=== PATIENT | female | born 1990 | race Caucasian/White ===

== ENCOUNTER 2021-05-10 09:23 | Emergency (ER) | payer OTHER ==
[2021-05-10 09:28] VITALS: BP 110/74; PULSE 83; BMI 23.1
[2021-05-10 09:29] VITALS: TEMP 98.2
[2021-05-10 10:50] LABS: PH,URINE 5.5 (5.0-8.0); URINE APPEARANCE CLEAR; URINE BILIRUBIN NEGATIVE (NEGATIVE); URINE COLOR YELLOW; URINE GLUCOSE (UA) NEGATIVE (NEGATIVE); URINE KETONE NEGATIVE (NEGATIVE); URINE LEUK ESTERASE NEGATIVE (NEGATIVE); URINE NITRITE NEGATIVE (NEGATIVE); URINE PROTEIN NEGATIVE (NEGATIVE); URINE UROBILINOGEN 0.2 mg/dL (0.2-1.0)
[2021-05-10 10:55] LABS: BASO % 0.6 % (0-2.0); EOS % 2.3 % (0-4.5); HEMATOCRIT 39.5 % (32.4-45.2); HEMOGLOBIN 13.6 GM/dL (10.7-15.3); LYMPH % 29.2 % (8-40); MCH 31.7 pg (25.7-33.7); MCHC 34.3 g/dl (32.0-36.0); MEAN CELL VOLUME 92.3 fl (80-96); MEAN PLT VOLUME 8.7 fl (7.5-11.1); MONO % 6.5 % (3.8-10.2); NEUT % 61.4 % (42.8-82.8); PLATELET COUNT 326 10^3/uL (134-434); RBC 4.28 M/mm3 (3.60-5.2); RDW 13.3 % (11.6-15.6)
[2021-05-10 11:05] LABS: CALCIUM 8.9 mg/dL (8.5-10.1)
[2021-05-10 11:06] LABS: BLOOD UREA NITROGEN 10.9 mg/dL (7-18)
[2021-05-10 11:09] LABS: CREATININE 0.7 mg/dL (0.55-1.3)
[2021-05-10 11:11] LABS: BILIRUBIN,TOTAL 0.4 mg/dL (0.2-1); TOT PROT 7.8 g/dl (6.4-8.2)
== END 2021-05-10 12:16 | disposition home or self-care (01) ==
LOC: JER 09:23
DX: R10.2 Pelvic and perineal pain (principal)
CPT/HCPCS: 36415; 80053; 81003; 84703; 85025; 87086; 99283-25

== ENCOUNTER 2021-10-21 09:45 | Emergency (ER) | payer OTHER ==
[2021-10-21 10:08] VITALS: BP 111/73; PULSE 89; TEMP 98.2; BMI 23.1
== END 2021-10-21 11:25 | disposition home or self-care (01) ==
LOC: JERFT 09:45
DX: R51.9 Headache, unspecified (principal); G89.29 Other chronic pain
CPT/HCPCS: 99281-25

== ENCOUNTER 2022-06-02 10:45 | Emergency (ER) | payer OTHER ==
[2022-06-02 10:59] VITALS: BP 117/78; PULSE 103; RESP 18; TEMP 98.3; BMI 24.2
[2022-06-02 11:58] LABS: BASO % 0.4 % (0-2.0); EOS % 1.3 % (0-4.5); HEMATOCRIT 39.7 % (32.4-45.2); HEMOGLOBIN 13.4 GM/dL (10.7-15.3); LYMPH % 23.2 % (8-40); MCHC 33.7 g/dl (32.0-36.0); MEAN PLT VOLUME 8.2 fl (7.5-11.1); MONO % 7.5 % (3.8-10.2); NEUT % 67.6 % (42.8-82.8); PLATELET COUNT 293 10^3/uL (134-434); RBC 4.46 M/mm3 (3.60-5.2); RDW 13.8 % (11.6-15.6); WHITE BLOOD COUNT 9.7 K/mm3 (4.0-10.0)
[2022-06-02 12:13] LABS: HCG,QUALITATIVE URINE Positive
[2022-06-02 12:22] LABS: EPI CELLS 11 /uL (0-25.1); HYALINE CASTS 1 /uL (0-3.1); PH,URINE 5.5 (5.0-8.0); URINE APPEARANCE CLEAR; URINE BACTERIA 74 /uL (0-1359); URINE BILIRUBIN NEGATIVE (NEGATIVE); URINE COLOR YELLOW; URINE GLUCOSE (UA) NEGATIVE (NEGATIVE); URINE KETONE NEGATIVE (NEGATIVE); URINE LEUK ESTERASE NEGATIVE (NEGATIVE); URINE NITRITE NEGATIVE (NEGATIVE); URINE PROTEIN NEGATIVE (NEGATIVE); URINE RBC 15 /uL (0-23.9); URINE UROBILINOGEN 0.2 mg/dL (0.2-1.0); URINE WBC 12 /uL (0-25.8)
[2022-06-02 12:28] LABS: CALCIUM 9.7 mg/dL (8.5-10.1)
[2022-06-02 12:30] LABS: BLOOD UREA NITROGEN 8.5 mg/dL (7-18)
[2022-06-02 12:32] LABS: CREATININE 0.5 mg/dL (0.55-1.3)
[2022-06-02 12:34] LABS: BILIRUBIN,TOTAL 0.4 mg/dL (0.2-1); TOT PROT 7.7 g/dl (6.4-8.2)
[2022-06-02 15:03] LABS: YEAST NONE SEEN (NEGATIVE)
== END 2022-06-02 14:50 | disposition home or self-care (01) ==
LOC: JERFT 10:45
DX: O20.0 Threatened abortion (principal)
CPT/HCPCS: 36415; 76817-TC; 80053; 81003; 84702; 84703; 85025; 86850; 86900; 86901; 87086; 99284-25

== ENCOUNTER 2023-01-26 06:06 | Inpatient (IN) | payer OTHER ==
[2023-01-26] MEDS ORDERED: ELECTROLYTE-148 SOLN 500 ML IV ONE ×2 (07:00→08:08)
[2023-01-26 07:29] VITALS: BMI 27.1
[2023-01-26] MEDS: ELECTROLYTE-148 SOLN 1,000 ML IV SCH (07:30)
[2023-01-26] MEDS ORDERED: CITRIC ACID/SODIUM CITRATE 30 ML UNIT-DOSE CUP PO ONE (07:30)
[2023-01-26] MEDS ORDERED: morphine SULFATE/PF 1 MG/2 ML (2cc Syringe - QUVA) ONE (08:10)
[2023-01-26] MEDS ORDERED: ceFAZolin SODIUM 1 GM VIAL ONE (08:10)
[2023-01-26] MEDS ORDERED: ONDANSETRON 4 MG/2 ML VIAL ONE (08:10)
[2023-01-26] MEDS ORDERED: FENTANYL CITRATE/PF 50 MCG/ML VIAL ONE (08:10)
[2023-01-26] MEDS ORDERED: PHENYLEPHRINE HCL 10 MG/1 ML SINGLE DOSE VIAL ONE ×2 (08:12)
[2023-01-26] MEDS ORDERED: ELECTROLYTE-148 SOLN 1,000 ML IV SCH (08:15)
[2023-01-26] MEDS ORDERED: ACETAMINOPHEN 325 MG TABLET (FP) PO PRN (09:14)
[2023-01-26] MEDS ORDERED: METHYLERGONOVINE MALEATE 0.2 MG/1 ML AMP IM PRN (09:14)
[2023-01-26] MEDS ORDERED: SENNOSIDES/DOCUSATE COMBO (SENNA PLUS) TABLET (UD) PO PRN (09:14)
[2023-01-26] MEDS ORDERED: IBUPROFEN 800 MG/8 ML IJ IVPB ONE (09:51)
[2023-01-26] MEDS: IBUPROFEN 800 MG/8 ML IJ IVPB PRN (10:00)
[2023-01-26] MEDS: OXYTOCIN 20 UNITS in 0.9% NS 20 UNIT/1,000 ML INFUS.BAG IV SCH (10:05)
[2023-01-26] MEDS ORDERED: OXYTOCIN 20 UNITS in 0.9% NS 20 UNIT/1,000 ML INFUS.BAG IV ONE (10:32)
[2023-01-26] MEDS ORDERED: oxyCODONE HCL 5 MG TABLET PO PRN (21:14)
[2023-01-27] MEDS: OXYTOCIN 20 UNITS in 0.9% NS 20 UNIT/1,000 ML INFUS.BAG IV SCH ×2 (01:49→21:08)
[2023-01-27] MEDS: IBUPROFEN 800 MG/8 ML IJ IVPB PRN (01:49)
[2023-01-27 07:54] LABS: BASO % 0.5 % (0-2.0); EOS % 0.5 % (0-4.5); HEMATOCRIT 37.7 % (32.4-45.2); HEMOGLOBIN 13.1 GM/dL (10.7-15.3); LYMPH % 10.1 % (8-40); MCH 31.4 pg (25.7-33.7); MCHC 34.6 g/dl (32.0-36.0); MEAN CELL VOLUME 90.7 fl (80-96); MEAN PLT VOLUME 8.2 fl (7.5-11.1); MONO % 6.8 % (3.8-10.2); NEUT % 82.1 % (42.8-82.8); PLATELET COUNT 252 10^3/uL (134-434); RBC 4.16 M/mm3 (3.60-5.2); RDW 13.7 % (11.6-15.6); WHITE BLOOD COUNT 13.1 K/mm3 (4.0-10.0)
[2023-01-27] MEDS ORDERED: BISACODYL 10 MG SUPP.RECT RC PRN (09:14)
[2023-01-27] MEDS: IBUPROFEN 600 MG TABLET (FP) PO PRN ×2 (10:09→18:33)
[2023-01-27] MEDS: ELECTROLYTE-148 SOLN 1,000 ML IV SCH (21:08)
[2023-01-27 23:48] VITALS: RESP 18
[2023-01-28] MEDS: IBUPROFEN 600 MG TABLET (FP) PO PRN ×3 (01:14→18:24)
[2023-01-28] MEDS: SIMETHICONE 80 MG TAB.CHEW (FP) PO PRN ×2 (10:33→18:24)
[2023-01-29] MEDS: SIMETHICONE 80 MG TAB.CHEW (FP) PO PRN (06:12)
[2023-01-29] MEDS: IBUPROFEN 600 MG TABLET (FP) PO PRN ×2 (06:12→10:07)
[2023-01-29 06:27] LABS: BASO % 0.6 % (0-2.0); EOS % 1.1 % (0-4.5); HEMATOCRIT 34.4 % (32.4-45.2); LYMPH % 7.9 % (8-40); MCH 31.8 pg (25.7-33.7); MCHC 34.9 g/dl (32.0-36.0); MEAN PLT VOLUME 8.9 fl (7.5-11.1); MONO % 6.8 % (3.8-10.2); NEUT % 83.6 % (42.8-82.8); PLATELET COUNT 242 10^3/uL (134-434); RBC 3.78 M/mm3 (3.60-5.2); RDW 13.4 % (11.6-15.6); WHITE BLOOD COUNT 12.9 K/mm3 (4.0-10.0)
[2023-01-29 10:33] VITALS: BP 112/78; PULSE 97; TEMP 97.6
== END 2023-01-29 12:10 | disposition home or self-care (01) | DRG 540 ==
LOC: JLDR 06:06 → J3W 11:05
PROVIDERS: ADMIT Obstetrics & Gynecology; ATTEND Obstetrics & Gynecology
PROC: 10D00Z1 Extraction of Products of Conception, Low, Open Approach (ICD-10-PCS; principal; 2023-01-26)
DX: O34.219 Maternal care for unspecified type scar from previous cesarean delivery (principal); Z3A.39 39 weeks gestation of pregnancy; Z37.0 Single live birth
CPT/HCPCS: 36415; 85025; 88307-TC

== ENCOUNTER 2023-06-07 11:24 | Emergency (ER) | payer OTHER ==
[2023-06-07 11:30] VITALS: RESP 18; BMI 26.6
[2023-06-07 16:13] LABS: BASO % 0.4 % (0-2.0); EOS % 1.1 % (0-4.5); HEMATOCRIT 44.3 % (32.4-45.2); HEMOGLOBIN 15.1 GM/dL (10.7-15.3); MCH 30.1 pg (25.7-33.7); MEAN CELL VOLUME 88.5 fl (80-96); MEAN PLT VOLUME 7.9 fl (7.5-11.1); MONO % 6.9 % (3.8-10.2); NEUT % 75.6 % (42.8-82.8); PLATELET COUNT 325 10^3/uL (134-434); RBC 5.01 M/mm3 (3.60-5.2); RDW 14.1 % (11.6-15.6); WHITE BLOOD COUNT 10.9 K/mm3 (4.0-10.0)
[2023-06-07 16:35] LABS: CALCIUM 9.3 mg/dL (8.5-10.1)
[2023-06-07 16:36] LABS: ALBUMIN 4.2 g/dl (3.4-5.0); BLOOD UREA NITROGEN 8.4 mg/dL (7-18)
[2023-06-07 16:39] LABS: CREATININE 0.6 mg/dL (0.55-1.3)
[2023-06-07 16:41] LABS: BILIRUBIN,TOTAL 0.6 mg/dL (0.2-1); TOT PROT 8.2 g/dl (6.4-8.2)
[2023-06-07] MEDS ORDERED: AMOX TR/POT CLAV 875MG/125MG TABLETS (FP) PO ONE (18:49)
[2023-06-07] MEDS ORDERED: AMOX TR/POT CLAV 875MG/125MG TABLETS (FP) ONE (19:11)
[2023-06-07 19:17] VITALS: BP 121/74; PULSE 84; TEMP 98.3
== END 2023-06-07 19:18 | disposition home or self-care (01) ==
LOC: JERFT 11:24
DX: H92.01 Otalgia, right ear (principal); R22.0 Localized swelling, mass and lump, head; L53.9 Erythematous condition, unspecified
CPT/HCPCS: 36415; 70481-TC; 80053; 84703; 85025; 99285-25; Q9967

== ENCOUNTER 2025-03-28 07:56 | Inpatient (IN) | payer OTHER ==
[2025-03-28 09:02] LABS: INR 1.01 (0.83-1.09); PROTHROMBIN TIME (PATIENT) 11.1 SEC (9.7-13.0)
[2025-03-28 09:05] LABS: ABSOLUTE IMMATURE GRANULOCYTES 0.05 x10^3/uL (0.0-0.031); BASOPHILS # 0.02 x10^3/uL (0.01-0.08); EOSINOPHIL % 0.5 % (0.7-5.8); EOSINOPHILS # 0.03 x10^3/uL (0.04-0.36); MCHC 33.4 g/dl (32.2-35.5); MEAN CELL VOLUME 91.1 fl (79.4-94.8); MEAN PLT VOLUME 10.2 fl (9.4-12.3); MONOCYTE # 0.65 x10^3/uL (0.24-0.86); MONOCYTE % 9.9 % (4.7-12.5); RDW 13.4 % (12.1-16.8)
[2025-03-28 09:06] LABS: ACTIVATED PTT 27.9 SECONDS (25.2-36.5)
[2025-03-28 09:36] VITALS: BMI 31.7
[2025-03-28 10:03] LABS: CO2 22.0 mmol/L (21-32); GLUCOSE,RANDOM 84.0 mg/dL (74-106)
[2025-03-28 10:06] LABS: CREATININE 0.4 mg/dL (0.55-1.3)
[2025-03-28] MEDS ORDERED: morphine SULFATE (PF) 1 MG/2 ML SYRINGE ONE (10:18)
[2025-03-28] MEDS ORDERED: FENTANYL CITRATE/PF 50 MCG/ML VIAL ONE (10:18)
[2025-03-28] MEDS ORDERED: SUCCINYLCHOLINE CHLORIDE 200 MG/10 ML SYRINGE ONE (10:50)
[2025-03-28] MEDS ORDERED: PROPOFOL 20 ML ONE (10:50)
[2025-03-28 12:07] LABS: CORD BASE EXCESS -1.9 mmol/L (0-2); CORD HCO3 23.5 mmHg (20-29); CORD PCO2 42.1 mmHg (30-78); CORD pH 7.364 (7.14-7.44)
[2025-03-28 12:08] LABS: CORD BASE EXCESS -5.4 mmol/L (0-2); CORD HCO3 21.4 mmHg (20-29); CORD PCO2 46.8 mmHg (30-78); CORD pH 7.279 (7.14-7.44)
[2025-03-28] MEDS ORDERED: OXYTOCIN 20 UNITS in 0.9% NS 20 UNIT/1,000 ML INFUS.BAG IV ONE (13:31)
[2025-03-28] MEDS ORDERED: METHYLERGONOVINE MALEATE 0.2 MG/1 ML AMP IM PRN (13:37)
[2025-03-28] MEDS: OXYTOCIN 20 UNITS in 0.9% NS 20 UNIT/1,000 ML INFUS.BAG IV SCH (14:00)
[2025-03-28] MEDS: ACETAMINOPHEN 1000 MG/100 ML BAG IVPB PRN (14:15)
[2025-03-28 15:45] VITALS: RESP 18
[2025-03-28] MEDS: IBUPROFEN 600 MG TABLET (FP) PO PRN (19:19)
[2025-03-29] MEDS: SIMETHICONE 80 MG TAB.CHEW (FP) PO PRN (01:00)
[2025-03-29 07:09] LABS: ABSOLUTE IMMATURE GRANULOCYTES 0.06 x10^3/uL (0.0-0.031); BASOPHILS # 0.03 x10^3/uL (0.01-0.08); EOSINOPHIL % 0.6 % (0.7-5.8); EOSINOPHILS # 0.07 x10^3/uL (0.04-0.36); MCHC 33.4 g/dl (32.2-35.5); MEAN CELL VOLUME 91.5 fl (79.4-94.8); MEAN PLT VOLUME 9.8 fl (9.4-12.3); MONOCYTE # 0.78 x10^3/uL (0.24-0.86); MONOCYTE % 6.7 % (4.7-12.5); RDW 13.5 % (12.1-16.8)
[2025-03-29] MEDS: ACETAMINOPHEN 325 MG TABLET (FP) PO PRN (19:41)
[2025-03-30 10:22] VITALS: PULSE 86
[2025-03-31 07:53] LABS: ABSOLUTE IMMATURE GRANULOCYTES 0.06 x10^3/uL (0.0-0.031); BASOPHILS # 0.03 x10^3/uL (0.01-0.08); EOSINOPHIL % 1.3 % (0.7-5.8); EOSINOPHILS # 0.11 x10^3/uL (0.04-0.36); MCHC 32.5 g/dl (32.2-35.5); MEAN CELL VOLUME 92.5 fl (79.4-94.8); MEAN PLT VOLUME 10.6 fl (9.4-12.3); MONOCYTE # 0.40 x10^3/uL (0.24-0.86); MONOCYTE % 4.8 % (4.7-12.5); RDW 13.7 % (12.1-16.8)
[2025-03-31] MEDS: BISACODYL 10 MG SUPP.RECT RC PRN (10:03)
[2025-03-31 11:50] VITALS: BP 109/72; TEMP 98.6
== END 2025-03-31 13:00 | disposition home or self-care (01) | DRG 540 ==
LOC: JLDR 07:56 → J3W 14:40
PROVIDERS: ADMIT Obstetrics & Gynecology Obstetrics; ATTEND Obstetrics & Gynecology Obstetrics
PROC: 10D00Z1 Extraction of Products of Conception, Low, Open Approach (ICD-10-PCS; principal; 2025-03-28)
DX: O34.211 Maternal care for low transverse scar from previous cesarean delivery (principal); N85.8 Other specified noninflammatory disorders of uterus; Z3A.39 39 weeks gestation of pregnancy; Z37.0 Single live birth
CPT/HCPCS: 36415; 36600; 80048; 82803; 85025; 85610; 85730; 86780; 86850; 86900; 86901; 88307-TC